=== PATIENT | male | born 1970 | race Caucasian/White ===

== ENCOUNTER 2016-11-13 12:17 | Emergency (ER) | END 2016-11-13 14:22 | disposition home or self-care (01) | DX: S01.01XA Laceration without foreign body of scalp, initial encounter (principal); W22.8XXA Striking against or struck by other objects, initial encounter; Y92.89 Other specified places as the place of occurrence of the external cause ==

== ENCOUNTER 2016-11-15 13:09 | Emergency (ER) | payer OTHER ==
[~2016-11-15] VITALS: Ht 180.3 cm; Wt 51.8 kg
[2016-11-15 13:21] VITALS: Ht 180.3 cm; Wt 51.8 kg
--- NOTE | 2016-11-22 19:24 | ERD ---
ER Documentation Chief Complaint Date/Time DATE: 11/22/16 TIME: 19:23 Chief Complaint WOUND CHECK LAC ON L HEAD ON 11/13 HPI This 45-year-old male presents for wound check on his scalp laceration sustained 2 days ago. He has no complaints of fevers, vomiting, visual changes. ROS All systems reviewed and are negative except as per history of present illness. Allergies Allergies: Coded Allergies: No Known Allergy (Unverified , 11/15/16) PMhx/Soc Medical and Surgical Hx: pt denies Medical Hx, pt denies Surgical Hx History of Surgery: No Anesthesia Reaction: No Hx Neurological Disorder: No Hx Respiratory Disorders: No Hx Cardiac Disorders: No Hx Psychiatric Problems: No Hx Miscellaneous Medical Probl: No Hx Alcohol Use: No Hx Substance Use: No Hx Tobacco Use: No Smoking Status: Never smoker Physical Exam Physical Exam Const: [] Alert, [id number]. Head: Atraumatic. There is a healing laceration of scalp without erythema, bleeding or discharge Eyes: Normal Conjunctiva ENT: Normal External Ears, Nose and Mouth. Neck: Full range of motion..~ No meningismus. Resp: Clear to auscultation bilaterally Cardio: Regular rate and rhythm, no murmurs Abd: Soft, non tender, non distended. Normal bowel sounds Skin: No petechiae or rashes Back: No midline or flank tenderness Ext: No cyanosis, or edema Neur: Awake and alert Psych: Normal Mood and Affect Procedures/MDM Patient presents for a wound check on a scalp laceration shows no evidence of infection or complications. He was discharged home instructions for staple removal in approximately 5 days. Departure Diagnosis: Primary Impression: Encounter for wound re-check Condition: Stable Patient Instructions: Wound Check, Lac F/U (No Infection) Additional Instructions: Staple removal 5 days. Return sooner for fevers, redness, vomiting, new or worsening symptoms. DIDIER COOPER MD Nov 22, 2016 19:24
== END 2016-11-15 14:15 | disposition home or self-care (01) ==
LOC: FTE 13:09
DX: Z48.01 Encounter for change or removal of surgical wound dressing (principal)
CPT/HCPCS: 99281

== ENCOUNTER 2016-11-19 10:14 | Emergency (ER) | payer OTHER ==
[~2016-11-19] VITALS: Ht 170.2 cm; Wt 114.5 kg
[2016-11-19 10:27] VITALS: Ht 170.2 cm; Wt 114.5 kg
--- NOTE | 2016-11-19 11:57 | ERD ---
ER Documentation Chief Complaint Date/Time DATE: 11/19/16 TIME: 11:55 Chief Complaint FOR STAPLE REMOVAL ON OCCIPITAL AREA HPI 25-year-old male otherwise healthy comes in for staple removal from the scalp that was done about a week ago. Patient states that he was working at [employer], there was a sharp metal piece sticking out that he accidentally ran into. No LOC, no vomiting. No fevers, no drainage. ROS All systems reviewed and are negative except as per history of present illness. Allergies Allergies: Coded Allergies: No Known Allergy (Unverified , 11/15/16) PMhx/Soc History of Surgery: No Anesthesia Reaction: No Hx Neurological Disorder: No Hx Respiratory Disorders: No Hx Cardiac Disorders: No Hx Psychiatric Problems: No Hx Miscellaneous Medical Probl: No Hx Alcohol Use: No Hx Substance Use: No Hx Tobacco Use: No Physical Exam Vitals Vital Signs Date Time Temp Pulse Resp B/P Pulse Ox O2 Delivery O2 Flow Rate FiO2 11/19/16 10:27 98.0 81 18 139/77 98 Physical Exam General: Well-developed, well-nourished. The patient appears in no acute distress. HEENT: Head is normocephalic, atraumatic. No scleral icterus. 3 jose c intact the left parieto-occipital scalp no dehiscence, erythema or drainage Neck: Supple. Nontender. Lungs: Clear to auscultation. Normal air movement. Heart: Regular rate and rhythm. S1 and S2 are normal. No murmurs, gallops, or rubs. Abdomen: Nondistended. Extremities: No clubbing or cyanosis. Moving extremities x 4. No weakness. Neurologic: Alert and oriented 3. No focal deficits. Normal speech and gait. Skin: Normal turgor. No rash or lesions. Procedures/MDM Staple Removal by me: Jose C removed with staple remover without incident. Wound shows no evidence of infection, foreign body, neurologic injury, vascular injury, open joint or tendon laceration. Patient to follow up PRN. Departure Diagnosis: Primary Impression: Encounter for removal of jose c Condition: Good Patient Instructions: Staple Removal, No Complication MANUEL HANSON PA-C Nov 19, 2016 11:57
== END 2016-11-19 12:16 | disposition home or self-care (01) ==
LOC: FTE 10:14
DX: Z48.02 Encounter for removal of sutures (principal)
CPT/HCPCS: 99281

== ENCOUNTER 2016-12-31 14:20 | Emergency (ER) | payer OTHER ==
[~2016-12-31] VITALS: Wt 90.0 kg
[2016-12-31] MEDS ORDERED: IBUPROFEN 600 MG TAB PO ONE (18:00)
--- NOTE | 2016-12-31 19:03 | RADRPT ---
PROCEDURE: XR Left Ankle. CLINICAL INDICATION: Injury. Pain. TECHNIQUE: Three views of the left ankle were performed. COMPARISON: None. FINDINGS: There is lateral malleolar subcutaneous soft tissue swelling. There is an underlying slightly displ aced fracture of distal fibular metadiaphysis.. Joint relationships are maintained. Ankle mortise is intact. Bone mineralization is within normal limits. IMPRESSION: Lateral malleolar subcutaneous soft tissue swelling with underlying distal fibular metadiaphyseal fr acture.. RPTAT: [facility]VK .Rafael De La Cruz MD, Date Time Electronically viewed and signed by .Rafael De La Cruz MD, on 12/31/2016 19:02 .K/
[2016-12-31] MEDS ORDERED: HYDR-906 PO (19:22)
[2016-12-31] MEDS ORDERED: IBUP-1542 PO (19:22)
--- NOTE | 2016-12-31 19:48 | ERD ---
ER Documentation Chief Complaint Date/Time DATE: 12/31/16 TIME: 19:44 Chief Complaint LEFT ANKLE PAIN AND SWELLING FROM A FALL . WHILE WORKING HPI This 46-year-old male complains of left ankle pain while falling at work. 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 The pain is in his ankle area. Denies any foot pain or knee pain. He denies restricted range of motion except due to pain and no weakness or deficits. ROS All systems reviewed and are negative except as per history of present illness. Medications Home Meds Active Scripts Hydrocodone/Acetaminophen ([place] 5-325 Tablet) 1 Each Tablet, 1 TAB PO Q6H Y for PAIN, #12 TAB Prov:DIDIER COOPER MD 12/31/16 Ibuprofen* (Motrin*) 600 Mg Tab, 600 MG PO Q6, #20 TAB Prov:DIDIER COOPER MD 12/31/16 Allergies Allergies: Coded Allergies: No Known Allergy (Unverified , 11/15/16) PMhx/Soc History of Surgery: No Anesthesia Reaction: No Hx Neurological Disorder: No Hx Respiratory Disorders: No Hx Cardiac Disorders: No Hx Psychiatric Problems: No Hx Miscellaneous Medical Probl: No Hx Alcohol Use: No Hx Substance Use: No Hx Tobacco Use: No Physical Exam Vitals Vital Signs Date Time Temp Pulse Resp B/P Pulse Ox O2 Delivery O2 Flow Rate FiO2 12/31/16 14:23 98.1 87 20 142/80 98 Physical Exam Const: [] Alert, [id number] per Head: Atraumatic Eyes: Normal Conjunctiva ENT: Normal External Ears, Nose and Mouth. Neck: Full range of motion..~ No meningismus. Resp: Clear to auscultation bilaterally Cardio: Regular rate and rhythm, no murmurs Abd: Soft, non tender, non distended. Normal bowel sounds Skin: No petechiae or rashes Back: No midline or flank tenderness Ext: No cyanosis, or edema. There is some tenderness and swelling around the distal fibula and ankle area. There is no erythema or bleeding or lacerations. There is no appreciation of tendon or neurologic deficits. Left lower extremity is neurovascular intact. Neur: Awake and alert Psych: Normal Mood and Affect Results 24 hrs Current Medications Medications (Trade) Dose Ordered Sig/Jeni Route PRN Reason Start Time Stop Time Status Last Admin Dose Admin Ibuprofen (Motrin) 600 mg ONCE ONCE PO 12/31/16 18:00 12/31/16 18:01 DC 12/31/16 17:41 Procedures/MDM X-ray Ankle 3V Interpreted by me: Bones: There is a nondisplaced distal fibula fracture Joints: No dislocation. Impression-left nondisplaced distal fibula fracture Patient was given crutches and crutch training. Patient given ibuprofen for pain. Patient has signs and symptoms of a nondisplaced left distal fibular fracture without evidence of dislocation, tendon or neurologic deficit, bacterial infection. It was treated with [place] and ibuprofen instructions to follow-up with his work comp provider of his employer. He should return for fevers, vomiting, new or worsening symptoms. 18. 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 Objective findings-tenderness and swelling of the left ankle without restricted range of motion weakness 19 B. X-ray and laboratory results-nondisplaced distal fibula fracture 20. Diagnosis-nondisplaced left distal fibula fracture 21. Findings and diagnosis consistent with patient's account of injury and onset?-Yes 22. Conditions that will impede or delay the patient's recovery? No 23. Treatment rendered-exam, history, medications, x-ray, splint and crutches Further treatment [id number] with orthopedist with occupational medicine clinic of employer 24. Patient hospitalized?-No 25. Work status-desk duty only until cleared by [employer] to perform usual work-no Patient can return on-January 01, 2017 Restrictions-desk duty only Departure Diagnosis: Primary Impression: Ankle fracture, lateral malleolus, closed Encounter type: initial encounter Fracture alignment: nondisplaced Laterality: right Qualified Code: S82.64XA - Closed nondisplaced fracture of lateral malleolus of right fibula, initial encounter Condition: Stable Patient Instructions: Ankle Fracture (Distal Fibula), Closed Additional Instructions: See orthopedics for further evaluation and treatment within the next week. See occupational medicine clinic of your employer. DIDIER COOPER MD Dec 31, 2016 19:47
[2016-12-31 20:02] VITALS: BP 132/74; PULSE 82; RESP 20; TEMP 98.3
== END 2016-12-31 20:17 | disposition home or self-care (01) ==
LOC: FTE 14:20
DX: S82.64XA Nondisplaced fracture of lateral malleolus of right fibula, initial encounter for closed fracture (principal); W19.XXXA Unspecified fall, initial encounter; Y92.89 Other specified places as the place of occurrence of the external cause
CPT/HCPCS: 73610